=== PATIENT | male | born 1945 | race Caucasian/White ===

== ENCOUNTER 2018-04-27 14:05 | Observation (INO) ==
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
[2018-04-27 14:33] LABS: Baso % (Auto) 0.6 % (0.0-2.0); Eos # (Auto) 0.2 th/mm3 (0.0-0.4); Eos % (Auto) 2.9 % (0.0-4.0); Hematocrit 40.3 % (39.0-51.0); Lymph # (Auto) 1.9 th/mm3 (1.0-4.8); Lymph % (Auto) 35.3 % (9.0-44.0); Mean Corpuscular HGB Conc 34.8 % (32.0-36.0); Mean Platelet Volume 8.2 fL (7.0-11.0); Mono # (Auto) 0.7 th/mm3 (0.0-0.9); Mono % (Auto) 13.7 % (0.0-8.0); Neut # (Auto) 2.6 th/mm3 (1.8-7.7); Neut % (Auto) 47.5 % (16.0-70.0); Platelet Count 283 th/mm3 (150-450); Red Blood Count 4.53 mil/mm3 (4.50-5.90); Red Cell Distribution Width 12.6 % (11.6-17.2); White Blood Count 5.4 th/mm3 (4.0-11.0)
--- NOTE | 2018-04-27 14:34 | CT ---
EXAM DATE: 04/27/2018 2:24 PM EDT AGE/SEX: 72 years / Male INDICATIONS: Stroke alert. Right sided coordination issues. CLINICAL DATA: This is the patient's initial encounter. Patient reports that signs and symptoms have been present for 1 day and indicates a pain score of 0/10. MEDICAL/SURGICAL HISTORY: None. None. RADIATION DOSE: 58.41 CTDI (mGy) COMPARISON: No prior exams available for comparison. TECHNIQUE: CT of the head without contrast. Using automated exposure control and adjustment of the mA and/or kV according to patient size, radiation dose was kept as low as reasonably achievable to ob tain optimal diagnostic quality images. DICOM format image data is available electronically for revi ew and comparison. FINDINGS: Cerebrum: The ventricles are normal for age. No evidence of midline shift, mass lesion, hemorrhage or acute infarction. No extraaxial fluid collections are seen. Posterior Fossa: The cerebellum and brainstem are intact. The 4th ventricle is midline. The cerebe llopontine angle is unremarkable. Extracranial: The visualized portion of the orbits is intact. Skull: The calvaria is intact. No evidence of skull fracture. CONCLUSION: 1. No acute intracranial abnormalities. . Electronically signed by: Matt Jung MD 04/27/2018 2:33 PM EDT
[2018-04-27 14:42] LABS: Chloride 107 meq/L (98-107); Potassium 3.8 meq/L (3.5-5.1); Sodium 140 meq/L (136-145)
[2018-04-27 14:44] LABS: Calcium 8.4 mg/dL (8.5-10.1)
[2018-04-27 14:45] LABS: Anion Gap 5 meq/L (5-15); Blood Urea Nitrogen 13 mg/dL (7-18); Carbon Dioxide 27.9 meq/L (21.0-32.0); Glucose,Random 94 mg/dL (74-106)
[2018-04-27 14:48] LABS: Glomerular Filtration Rate 74 mL/min (>89)
--- NOTE | 2018-04-27 14:50 | XR ---
EXAM DATE: 04/27/2018 2:18 PM EDT AGE/SEX: 72 years / Male INDICATIONS: Stroke alert. CLINICAL DATA: This is the patient's initial encounter. Patient reports that signs and symptoms have been present for 1 day and indicates a pain score of Nonresponsive. MEDICAL/SURGICAL HISTORY: None. None. COMPARISON: No prior exams available for comparison. FINDINGS: A single AP view of the chest demonstrates the lungs to be symmetrically aerated without evidence of mass, infiltrate or effusion. Minimal basilar atelectasis. The cardiomediastinal contours are unrema rkable. Osseous structures are intact. CONCLUSION: Minimal basilar atelectasis. Exam otherwise unremarkable. Electronically signed by: Matt Jung MD 04/27/2018 2:49 PM EDT
[2018-04-27 14:56] LABS: Creatine Kinase 100 U/L (39-308)
[2018-04-27] MEDS ORDERED: Dextrose 50% in Water 50 ML Vial IV.PUSH PRN (15:08)
[2018-04-27] MEDS ORDERED: Aluminum/Magnesium/Simethacone Susp 30 ML UDC PO PRN (15:12)
[2018-04-27] MEDS ORDERED: Acetaminophen 325 MG Tablet PO PRN (15:12)
[2018-04-27] MEDS ORDERED: Docusate Sodium 100 MG Capsule PO PRN (15:12)
[2018-04-27] MEDS ORDERED: Senna/Docusate Sodium 8.6/50 MG Tablet PO PRN (15:12)
--- NOTE | 2018-04-27 15:13 | CT ---
EXAM DATE: 04/27/2018 2:24 PM EDT AGE/SEX: 72 years / Male INDICATIONS: Stroke alert. Right sided coordination issues. CLINICAL DATA: This is the patient's initial encounter. Patient reports that signs and symptoms have been present for 1 day and indicates a pain score of 0/10. MEDICAL/SURGICAL HISTORY: None. None. RADIATION DOSE: 42.28 CTDI (mGy) ; Combined studies COMPARISON: No prior exams available for comparison. TECHNIQUE: Volumetric scanning was performed using a multirow detector CT scanner during bolus infus ion of 100 ml Visipaque 320 (iodixanol) nonionic water-soluble contrast as a cumulative dose for mul tiple exams. The data was postprocessed with a variety of visualization algorithms including full-v olume maximum intensity projection, multiplanar sliding thin-slab reformation, curved-planar reformat ion, and surface-rendering techniques. Using automated exposure control and adjustment of the mA and /or kV according to patient size, radiation dose was kept as low as reasonably achievable to obtain o ptimal diagnostic quality images. DICOM format image data is available electronically for review and comparison. FINDINGS: Aortic Arch: There is a three-vessel origin of the great vessels from the aorta. No evidence of ost ial narrowing Right Carotid: The common carotid artery is intact. The carotid bulb has a normal configuration wit hout ulceration or narrowing. The internal carotid artery lumen is smooth without stenosis. The ext ernal carotid artery is intact. Left Carotid: The common carotid artery is intact. The carotid bulb has a normal configuration with out ulceration or narrowing. The internal carotid artery lumen is smooth without stenosis. The exte rnal carotid artery is intact. Vertebrals: The vertebral arteries have a symmetric diameter. No stenotic lesions are seen. Percent stenosis is calculated using the diameter of the stenotic region over the diameter of the nor mal distal internal carotid artery. CONCLUSION: 1. Unremarkable exam for patient's age. Electronically signed by: Kwesi German MD 04/27/2018 3:11 PM EDT
--- NOTE | 2018-04-27 15:21 | CT ---
EXAM DATE: 04/27/2018 2:24 PM EDT AGE/SEX: 72 years / Male INDICATIONS: Stroke alert. Right sided coordination issues. CLINICAL DATA: This is the patient's initial encounter. Patient reports that signs and symptoms have been present for 1 day and indicates a pain score of 0/10. MEDICAL/SURGICAL HISTORY: None. None. RADIATION DOSE: 42.28 CTDI (mGy) ; Combined studies COMPARISON: No prior exams available for comparison. TECHNIQUE: Volumetric scanning was performed using a multi-row detector CT scanner during bolus infu christina of 100 ml Visipaque 320 (iodixanol) nonionic water-soluble contrast as a cumulative dose for mu ltiple exams. The data was post processed with a variety of visualization algorithms including full volume maximum intensity projection, multi-planar sliding thin slab reformation, curved planar refor mation, and surface rendering techniques. Using automated exposure control and adjustment of the mA and/or kV according to patient size, radiation dose was kept as low as reasonably achievable to obtai n optimal diagnostic quality images. DICOM format image data is available electronically for review and comparison. FINDINGS: The distal internal carotid arteries are patent. Basilar artery is patent. Anterior, middle and posterior cerebral arteries are patent. No discrete aneurysm. No dissection. No occlusive disease identified. CONCLUSION: 1. Negative CTA head. Electronically signed by: Matt Jung MD 04/27/2018 3:20 PM EDT
[2018-04-27] MEDS: Sod Chloride 0.9% Inj 1,000 ML IV.CONT SCH (15:23)
[2018-04-27 15:39] LABS: Bilirubin,Urine Negative (Negative); Clarity,Urine Clear (Clear); Glucose,Urine (UA) Negative (Negative); Leukocyte Esterase,Urine Negative (Negative); Nitrite,Urine Negative (Negative); Specific Gravity,Urine Less/Equal 1.005 (1.002-1.035); Urobilinogen,Urine 0.2 mg/dL (Less than 2)
[2018-04-27 15:47] LABS: Color,Urine Straw (Yellw/Straw)
[2018-04-27 15:57] LABS: Barbiturate Screen,Urine Neg (Neg)
[2018-04-27 15:58] LABS: Amphetamine Screen,Urine Neg (Neg)
[2018-04-27 16:01] LABS: Cannabinoid Screen,Urine Neg (Neg); Cocaine Screen,Urine Neg (Neg)
[2018-04-27 16:10] LABS: Activated Partial Thrombo Time 29.1 sec (24.3-30.1); Prothrombin Time 10.5 sec (9.8-11.6)
[2018-04-27 16:16] LABS: Opiate Screen,Urine Neg (Neg)
--- NOTE | 2018-04-27 17:08 | MR ---
EXAM DATE: 04/27/2018 4:07 PM EDT AGE/SEX: 72 years / Male INDICATIONS: Stroke alert. Ataxia. CLINICAL DATA: This is the patient's initial encounter. Patient reports that signs and symptoms have been present for 1 day and indicates a pain score of 0/10. MEDICAL/SURGICAL HISTORY: None. . Testicular surgery. COMPARISON: [facility], CTA HEAD W CONTRAST W 3D, 04/27/2018. . TECHNIQUE: Multiplanar, multisequence examination of the brain was performed without contrast. FINDINGS: Cerebrum: The ventricles are normal for age. No evidence of midline shift, mass lesion, hemorrhage or acute infarction. No extraaxial fluid collections are seen. The pituitary gland and suprasellar cistern are normal in configuration. White Matter: No significant signal abnormalities are seen in the white matter. Posterior Fossa: The cerebellum and brainstem are intact. The 4th ventricle is midline. The cerebel lopontine angle is unremarkable. The cerebellar tonsils are normal in position. Diffusion Imaging: No focal areas of restricted diffusion are seen. No evidence of acute infarction . Extracranial: The visualized portions of the orbits and paranasal sinuses are unremarkable. CONCLUSION: 1. No evidence of acute infarct, hemorrhage, mass or edema. 2. Patent proximal intracranial vessels. Electronically signed by: Logan Packer MD 04/27/2018 5:07 PM EDT
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
[2018-04-27] MEDS: Insulin NovoLOG Aspart Correctional Sugar Inj SQ SCH ×2 (18:05→21:09)
[2018-04-27 21:03] LABS: Vitamin B12 420 pg/mL (193-986)
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
--- NOTE | 2018-04-27 22:37 | ECG ---
Date Performed: 04/27/2018 Time Performed: 15:04:51 PTAGE: 72 years EKG: Sinus rhythm WITH OCCASIONAL VENTRICULAR PREMATURE COMPLEXES BORDERLINE ECG PREVIOUS TRACING : 03/01/2007 23.26 Since the previous tracing, no significant change noted DOCTOR: Jorge Allen Interpretating Date/Time 04/27/2018 22:36:32
[2018-04-28 08:17] VITALS: RESP 20
[2018-04-28] MEDS: Sod Chloride 0.9% Inj 1,000 ML IV.CONT SCH (09:02)
[2018-04-28] MEDS: Insulin NovoLOG Aspart Correctional Sugar Inj SQ SCH (09:02)
--- NOTE | 2018-04-28 09:45 | ECHRPT ---
Indication: CVA/TIA CONCLUSIONS Normal left ventricular size. Mild concentric left ventricular hypertrophy. The left ventricular systolic function is normal with an estimated ejection fraction in the range of 55-60%. No definite segmental wall motion abnormalities. There is trace tricuspid valve regurgitation. The estimated pulmonary arterial pressure is 36 mmHg. BP: / HR: Rhythm: Sinus MEASUREMENTS (Male / Female) Normal Values Technical Quality:Fair 2D ECHO LV Diastolic Diameter PLAX 4.4 cm 4.2 - 5.9 / 3.9 - 5.3 cm LV Systolic Diameter PLAX 3.3 cm IVS Diastolic Thickness 1.1 cm 0.6 - 1.0 / 0.6 - 0.9 cm LVPW Diastolic Thickness 1.1 cm 0.6 - 1.0 / 0.6 - 0.9 cm LV Relative Wall Thickness 0.5 RV Internal Dim ED PLAX 2.7 cm LVOT Diameter 2.4 cm Aortic Root Diameter 3.3 cm LA Systolic Diameter LX 3.0 cm 3.0 - 4.0 / 2.7 - 3.8 cm M-MODE AV Cusp Separation MM 2.3 cm DOPPLER AV Peak Velocity 123.0 cm/s AV Peak Gradient 6.1 mmHg AV Mean Gradient 3.0 mmHg AV Velocity Time Integral 24.1 cm LVOT Peak Velocity 85.0 cm/s LVOT Peak Gradient 2.9 mmHg LVOT Velocity Time Integral 16.6 cm AV Area Cont Eq vti 3.1 cm AV Area Cont Eq pk 3.1 cm Mitral E Point Velocity 64.2 cm/s Mitral A Point Velocity 68.6 cm/s Mitral E to A Ratio 0.9 LV E' Lateral Velocity 10.5 cm/s Mitral E to LV E' Lateral Ratio 6.1 LV E' Septal Velocity 7.6 cm/s Mitral E to LV E' Septal Ratio 8.4 TR Peak Velocity 257.0 cm/s TR Peak Gradient 26.4 mmHg Right Atrial Pressure 10.0 mmHg Pulmonary Artery Systolic Pressu 36.4 mmHg Right Ventricular Systolic Press 36.4 mmHg PV Peak Velocity 58.7 cm/s PV Peak Gradient 1.4 mmHg FINDINGS LEFT VENTRICLE Normal left ventricular size. Mild concentric left ventricular hypertrophy. The left ventricular systolic function is normal with an estimated ejection fraction in the range of 55-60%. RIGHT VENTRICLE Normal right ventricular size and systolic function. LEFT ATRIUM The left atrial size is normal. RIGHT ATRIUM The right atrial size is normal. ATRIAL SEPTUM The interatrial septum not well visualized. AORTA The aortic root and proximal ascending aorta are normal in size on limited imaging. MITRAL VALVE Structurally normal mitral valve. No mitral valve stenosis or regurgitation. AORTIC VALVE Trileaflet aortic valve. No aortic valve stenosis or regurgitation. TRICUSPID VALVE There is trace tricuspid valve regurgitation. The estimated pulmonary arterial pressure is 36 mmHg. PULMONARY VALVE No pulmonary valve regurgitation or stenosis. VESSELS The inferior vena cava was not well visualized. PERICARDIUM No pericardial effusion. Beto Torres MD (Electronically Signed) Final Date:28 April 2018 09:36
--- NOTE | 2018-04-28 10:00 | P.PN ---
Subjective Interval history: 72-year-old male who is seen and examined today for follow-up on TIA. Patient is doing well today. Denies any recurrence of symptoms. Patient's mentation, speech, ambulation is without any abnormality. Vital signs appear to be stable. Patient remains afebrile Physical Exam Vital signs: Vital Signs 04/27/18 14:19 04/27/18 14:35 04/27/18 14:44 Temperature 98.1 F Pulse Rate 75 70 Respiratory Rate 16 Blood Pressure 144/75 H Pulse Oximetry 95 95 97 04/27/18 15:35 04/27/18 17:30 04/27/18 18:00 Temperature 96.9 F L Pulse Rate 68 65 77 Respiratory Rate 16 16 Blood Pressure 158/35 H 183/85 H Pulse Oximetry 97 97 97 04/27/18 18:19 04/27/18 20:25 04/27/18 21:00 Temperature 96.5 F L Pulse Rate 77 68 Respiratory Rate 18 Blood Pressure 152/83 H Pulse Oximetry 95 94 L 04/28/18 00:00 04/28/18 04:00 04/28/18 08:00 Temperature 97.4 F L 97.1 F L 97.3 F L Pulse Rate 61 60 63 Respiratory Rate 18 18 20 Blood Pressure 126/67 124/71 158/79 H Pulse Oximetry 95 98 93 L Intake & Output 04/27/18 04/28/18 04/28/18 18:59 06:59 18:59 Intake Total 200 / 200 1200 / 1200 Balance 200 / 200 1200 / 1200 Weight 97 kg 97 kg Intake: IV 1000 / 1000 NS Inj 1,000 ML @ 70 mls/hr IV. 1000 / 1000 CONT .[id number] [facility] Rx#: [id number] Oral 200 / 200 200 / 200 Other: # Voids 2 Narrative: GENERAL: Well-developed, well-nourished, in no acute distress. alert and orientated HEENT: Head is normocephalic without any lesions or masses noted. Facial features are symmetric. Eyes: Extraocular muscles are intact. Conjunctivae were clear. NECK: Supple without any masses. Trachea midline no deviation. No JVD, CARDIAC: Regular rhythm, regular rate. S1/S2 are heard. No murmurs gallops or rubs. LUNGS: Clear to auscultation bilaterally. No wheeze, rhonchi or rales. No use of accessory muscles on inspiration or expiration. ABDOMEN: Soft, nontender. Nondistended. Bowel sounds heard in all 4 quadrants. No organomegaly or masses. Negative rebound, negative guarding EXTREMITIES: No edema, pulses are equal bilaterally. No cyanosis or clubbing NEUROLOGY: Mood and affect appear appropriate. Cranial nerves II through XII grossly intact. Moving all extremities, speech is clear Results - Labs CBC & Chem 7: 04/27/18 14:19 04/27/18 14:19 Laboratory Results - last 24 hr 04/27/18 04/27/18 04/27/18 14:19 14:19 14:19 CBC w Diff Auto diff final WBC 5.4 RBC 4.53 Hgb 14.0 Hct 40.3 MCV 89.0 MCH 31.0 MCHC 34.8 RDW 12.6 Plt Count 283 MPV 8.2 Neut % (Auto) 47.5 Lymph % (Auto) 35.3 [place] % (Auto) 13.7 H Eos % (Auto) 2.9 Baso % (Auto) 0.6 Neut # (Auto) 2.6 Lymph # (Auto) 1.9 [place] # (Auto) 0.7 Eos # (Auto) 0.2 Baso # (Auto) 0.0 WBC Differential . Differential Comment . ESR PT 10.5 INR 1.0 APTT 29.1 Fibrinogen 322 Sodium 140 Potassium 3.8 Chloride 107 Carbon Dioxide 27.9 Anion Gap 5 BUN 13 Creatinine 1.00 Estimated GFR 74 L POC Glucose Random Glucose 94 Calcium 8.4 L Total Creatine Kinase 100 Troponin I Less than 0.02 L Vitamin B12 Folate TSH Ur Collection Type Urine Color Urine Clarity Urine pH Ur Specific [place] Urine Protein Urine Glucose (UA) Urine Ketones Urine Occult Blood Urine Nitrate Urine Bilirubin Urine Urobilinogen Ur Leukocyte Esterase Micro UA Comment Ur Microscopic Review Urine Culture Comments Urine Opiates Screen Ur Barbiturates Screen Ur Amphetamines Screen U Benzodiazepines Scrn Urine Cocaine Screen U Cannabinoids Screen Blood Type Blood Type Recheck Antibody Screen 04/27/18 04/27/18 04/27/18 14:19 14:19 14:19 CBC w Diff WBC RBC Hgb Hct MCV MCH MCHC RDW Plt Count MPV Neut % (Auto) Lymph % (Auto) [place] % (Auto) Eos % (Auto) Baso % (Auto) Neut # (Auto) Lymph # (Auto) [place] # (Auto) Eos # (Auto) Baso # (Auto) WBC Differential Differential Comment ESR 6 PT INR APTT Fibrinogen Sodium Potassium Chloride Carbon Dioxide Anion Gap BUN Creatinine Estimated GFR POC Glucose Random Glucose Calcium Total Creatine Kinase Troponin I Vitamin B12 420 Folate Greater than 20.0 H TSH 1.120 Ur Collection Type Urine Color Urine Clarity Urine pH Ur Specific [place] Urine Protein Urine Glucose (UA) Urine Ketones Urine Occult Blood Urine Nitrate Urine Bilirubin Urine Urobilinogen Ur Leukocyte Esterase Micro UA Comment Ur Microscopic Review Urine Culture Comments Urine Opiates Screen Ur Barbiturates Screen Ur Amphetamines Screen U Benzodiazepines Scrn Urine Cocaine Screen U Cannabinoids Screen Blood Type A Negative Blood Type Recheck Required Antibody Screen Negative 04/27/18 04/27/18 04/27/18 15:20 15:20 17:45 CBC w Diff WBC RBC Hgb Hct MCV MCH MCHC RDW Plt Count MPV Neut % (Auto) Lymph % (Auto) [place] % (Auto) Eos % (Auto) Baso % (Auto) Neut # (Auto) Lymph # (Auto) [place] # (Auto) Eos # (Auto) Baso # (Auto) WBC Differential Differential Comment ESR PT INR APTT Fibrinogen Sodium Potassium Chloride Carbon Dioxide Anion Gap BUN Creatinine Estimated GFR POC Glucose 83 Random Glucose Calcium Total Creatine Kinase Troponin I Vitamin B12 Folate TSH Ur Collection Type Clean catch Urine Color Straw Urine Clarity Clear Urine pH 7.0 Ur Specific [place] Less/equal 1.005 Urine Protein Negative Urine Glucose (UA) Negative Urine Ketones Negative Urine Occult Blood Negative Urine Nitrate Negative Urine Bilirubin Negative Urine Urobilinogen 0.2 Ur Leukocyte Esterase Negative Micro UA Comment Culture not ind Ur Microscopic Review Microscopic reviewed Urine Culture Comments Culture not ind Urine Opiates Screen Neg Ur Barbiturates Screen Neg Ur Amphetamines Screen Neg U Benzodiazepines Scrn Neg Urine Cocaine Screen Neg U Cannabinoids Screen Neg Blood Type Blood Type Recheck Antibody Screen 04/27/18 04/28/18 21:07 07:29 CBC w Diff WBC RBC Hgb Hct MCV MCH MCHC RDW Plt Count MPV Neut % (Auto) Lymph % (Auto) [place] % (Auto) Eos % (Auto) Baso % (Auto) Neut # (Auto) Lymph # (Auto) [place] # (Auto) Eos # (Auto) Baso # (Auto) WBC Differential Differential Comment ESR PT INR APTT Fibrinogen Sodium Potassium Chloride Carbon Dioxide Anion Gap BUN Creatinine Estimated GFR POC Glucose 147 H 94 Random Glucose Calcium Total Creatine Kinase Troponin I Vitamin B12 Folate TSH Ur Collection Type Urine Color Urine Clarity Urine pH Ur Specific [place] Urine Protein Urine Glucose (UA) Urine Ketones Urine Occult Blood Urine Nitrate Urine Bilirubin Urine Urobilinogen Ur Leukocyte Esterase Micro UA Comment Ur Microscopic Review Urine Culture Comments Urine Opiates Screen Ur Barbiturates Screen Ur Amphetamines Screen U Benzodiazepines Scrn Urine Cocaine Screen U Cannabinoids Screen Blood Type Blood Type Recheck Antibody Screen - Imaging Impressions Chest X-Ray 04/27/18 14:18 CONCLUSION: Minimal basilar atelectasis. Exam otherwise unremarkable. Head CT 04/27/18 14:18 CONCLUSION: 1. No acute intracranial abnormalities. . Head CTA 04/27/18 14:18 CONCLUSION: 1. Negative CTA head. Neck CTA 04/27/18 14:18 CONCLUSION: 1. Unremarkable exam for patient's age. Head MRI 04/27/18 14:44 CONCLUSION: 1. No evidence of acute infarct, hemorrhage, mass or edema. 2. Patent proximal intracranial vessels. - Procedures ECHOCARDIOGRAM CONCLUSIONS Normal left ventricular size. Mild concentric left ventricular hypertrophy. The left ventricular systolic function is normal with an estimated ejection fraction in the range of 55-60%. No definite segmental wall motion abnormalities. There is trace tricuspid valve regurgitation. The estimated pulmonary arterial pressure is 36 mmHg. Assessment and Plan - Assessment (1) Transient ischemic attack Code(s): G45.9 - Transient cerebral ischemic attack, unspecified Status: Acute - Plan Transient ischemic attack -CT/CTA of the brain was unremarkable for any acute abnormality -MRI of the brain did not indicate any acute abnormality -CTA of the neck was unremarkable -Echocardiogram: See above results -Further testing to include B12, folate, TSH, sed rate were unremarkable -Awaiting hemoglobin A1c -PT/OT/ST evaluations -Patient continued on full dose aspirin -Neurology consulted for further recommendations, who indicated that if workup is unremarkable, then patient can be discharged home with outpatient referral for event monitor Hyperlipidemia -LDL was 116 -Start Lipitor 20 mg daily Elevated blood pressure -Start Norvasc 5 mg daily DVT prevention -Sequential compression devices Discharge Planning: Discharge home in stable condition Activity: Ad precious. Diet: Healthy heart diet Medication per medication reconciliation Follow-up with primary medical doctor in 1 week, follow-up with neurologist in 2 weeks, refer to [facility] for event monitor
[2018-04-28 10:10] LABS: Chol/HDL Ratio 4.64 Ratio; HDL Cholesterol 38.3 mg/dL (40.0-60.0)
[2018-04-28] MEDS ORDERED: amLODIPine 5 MG Tablet PO SCH (10:45)
[2018-04-28 11:32] VITALS: BP 157/90; PULSE 64; TEMP 97.6; O2SAT 99
[2018-04-28 16:10] LABS: Hemoglobin A1c 5.8 % (4.3-6.0)
== END 2018-04-28 14:30 | disposition home or self-care (01) ==
LOC: PHEDA 14:05 → PHED 14:05 → PH3 16:10
PROVIDERS: ADMIT Hospitalist; ATTEND Hospitalist